=== PATIENT | male | born 1990 | race Caucasian/White ===

== ENCOUNTER 2019-04-18 08:35 | Emergency (ER) | payer SELFPAY ==
--- NOTE | 2019-04-18 09:10 | ER ---
Nurse's Notes [facility] Name: Gray Tristan Age: 28 yrs Sex: Male : 1990 Arrival Date: 04/18/2019 Time: 08:36 Bed 13 Private MD: Diagnosis: Cutaneous Abscess of Left Face Presentation: 04/18 08:38 Presenting complaint: Patient states: Abscess on the left chin started two days ago. rb1 Pt. took Dresser 5/325 mg x 2 tabs and unknown antibiotic approximately 0815 this morning. Transition of care: patient was not received from another setting of care. Onset of symptoms was April 16, 2019. Risk Assessment: Do you want to hurt yourself or someone else? Patient reports no desire to harm self or others. Initial Sepsis Screen: Does the patient meet any 2 criteria? No. Patient's initial sepsis screen is negative. Does the patient have a suspected source of infection? Yes: Skin breakdown/wound. Care prior to arrival: Medication(s) given: Dresser 5/325 mg x 2 tabs \T\ 0815 this morning and unknown antibiotic. 08:38 Method Of Arrival: Ambulatory rb1 08:38 Acuity: DONTE 3 rb1 Triage Assessment: 08:38 General: Appears in no apparent distress. comfortable, Behavior is calm, cooperative, rb1 Denies fever. Pain: Complains of pain in left chin Pain currently is 5 out of 10 on a pain scale. Pain began x 2 days. Neuro: Level of Consciousness is awake, alert, obeys commands, Oriented to person, place, time, situation. Cardiovascular: Capillary refill < 3 seconds is brisk in bilateral fingers. Respiratory: Airway is patent Respiratory effort is even, unlabored, Respiratory pattern is regular, symmetrical. GI: Reports nausea. : No signs and/or symptoms were reported regarding the genitourinary system. Derm: Abscess located on left chin/mandible is quarter sized, has no drainage, is red, is raised, Reports abscess was draining last night. Musculoskeletal: Range of motion: intact in all extremities. Historical: - Allergies: 08:38 Agave; rb1 - Home Meds: 08:38 None [Active]; rb1 - PMHx: 08:38 Abscess; rb1 - PSHx: 08:38 None; rb1 - Immunization history:: Adult Immunizations up to date. - Social history:: Smoking status: Patient uses tobacco products, smokes one pack cigarettes per day. - Ebola Screening: : Patient negative for fever greater than or equal to 101.5 degrees Fahrenheit, and additional compatible Ebola Virus Disease symptoms. Screenin:38 Abuse screen: Denies threats or abuse. Nutritional screening: No deficits noted. rb1 Tuberculosis screening: No symptoms or risk factors identified. Fall Risk None identified. Assessment: 08:38 General: See triage assessment. rb1 09:15 Reassessment: Patient appears in no apparent distress at this time. No changes from rb1 previously documented assessment. Vital Signs: 08:38 BP 138 / 88; Pulse 99; Resp 18; Temp 97.6(O); Pulse Ox 99% on R/A; Weight 77.11 kg (R); rb1 Height 5 ft. 9 in. (175.26 cm) (R); Pain 5/10; 09:15 BP 138 / 88; Pulse 89; Resp 17; Pulse Ox 100% on R/A; Pain 4/10; rb1 08:38 Body Mass Index 25.10 (77.11 kg, 175.26 cm) rb1 ED Course: 08:36 Patient arrived in ED. as 08:38 Meenakshi Collins, RN is Primary Nurse. rb1 08:38 Arm band placed on right wrist. rb1 08:38 Patient has correct armband on for positive identification. Bed in low position. Call rb1 light in reach. Side rails up X 1. Pulse ox on. NIBP on. 08:46 James Ceja MD is Attending Physician. ps1 08:47 Triage completed. rb1 09:16 No provider procedures requiring assistance completed. Patient did not have IV access rb1 during this emergency room visit. Administered Medications: No medications were administered Outcome: 09:09 Discharge ordered by . ps1 09:16 Discharged to home ambulatory. rb1 09:16 Condition: stable 09:16 Discharge instructions given to patient, Instructed on discharge instructions, follow up and referral plans. medication usage, Demonstrated understanding of instructions, follow-up care, medications, Prescriptions given X 1. 09:17 Patient left the ED. rb1 Signatures: Edda Delgado as Meenakshi Collins, SANDY RN rb1 James Ceja MD MD ps1
--- NOTE | 2019-04-18 09:10 | EDPHYS ---
Physician Documentation [facility] Name: Gray Tristan Age: 28 yrs Sex: Male : 1990 Arrival Date: 04/18/2019 Time: 08:36 Bed 13 Private MD: ED Physician James Ceja HPI: 04/18 09:05 This 28 yrs old Male presents to ER via Ambulatory with complaints of Abscess.ps1 09:05 The patient presents with an abscess of the left jaw. Appears to be cutaneous. No fever ps1 or cellulitic changes. Painful, rated as moderate and worse with palpation. Actively draining and expressed at home. Hx of previous abscess in same area. . Historical: - Allergies: 08:38 Agave; rb1 - Home Meds: 08:38 None [Active]; rb1 - PMHx: 08:38 Abscess; rb1 - PSHx: 08:38 None; rb1 - Immunization history:: Adult Immunizations up to date. - Social history:: Smoking status: Patient uses tobacco products, smokes one pack cigarettes per day. - Ebola Screening: : Patient negative for fever greater than or equal to 101.5 degrees Fahrenheit, and additional compatible Ebola Virus Disease symptoms. ROS: 09:05 Constitutional: Negative for fever, chills, and weight loss, Eyes: Negative for injury, ps1 pain, redness, and discharge, Cardiovascular: Negative for chest pain, palpitations, and edema, Respiratory: Negative for shortness of breath, cough, wheezing, and pleuritic chest pain, Abdomen/GI: Negative for abdominal pain, nausea, vomiting, diarrhea, and constipation, Neuro: Negative for headache, weakness, numbness, tingling, and seizure. 09:05 Skin: Positive for abscess. Exam: 09:05 Constitutional: This is a well developed, well nourished patient who is awake, alert, ps1 and in no acute distress. Head/Face: Normocephalic, atraumatic. Chest/axilla: Normal chest wall appearance and motion. Nontender with no deformity. No lesions are appreciated. Cardiovascular: Regular rate and rhythm. No gallops, murmurs, or rubs. Normal PMI, no JVD. No pulse deficits. Respiratory: Lungs have equal breath sounds bilaterally, clear to auscultation and percussion. No rales, rhonchi or wheezes noted. No increased work of breathing, no retractions or nasal flaring. Abdomen/GI: Soft, non-tender, with normal bowel sounds. No distension or tympany. No guarding or rebound. No evidence of tenderness throughout. 09:05 Skin: abscess, that is moderate sized, approximately 2 cm(s), of the face and left jaw, with drainage, that is serosanguinous. Vital Signs: 08:38 BP 138 / 88; Pulse 99; Resp 18; Temp 97.6(O); Pulse Ox 99% on R/A; Weight 77.11 kg (R); rb1 Height 5 ft. 9 in. (175.26 cm) (R); Pain 5/10; 09:15 BP 138 / 88; Pulse 89; Resp 17; Pulse Ox 100% on R/A; Pain 4/10; rb1 08:38 Body Mass Index 25.10 (77.11 kg, 175.26 cm) rb1 MDM: 08:57 Patient medically screened. ps1 09:08 Differential diagnosis: abscess, cellulitis. Data reviewed: vital signs, nurses notes, ps1 and as a result, I will discharge patient. Counseling: I had a detailed discussion with the patient and/or guardian regarding: the historical points, exam findings, and any diagnostic results supporting the discharge/admit diagnosis, to return to the emergency department if symptoms worsen or persist or if there are any questions or concerns that arise at home. Administered Medications: No medications were administered Disposition: 04/18/19 09:09 Discharged to Home. Impression: Cutaneous Abscess of Left Face. - Condition is Stable. - Discharge Instructions: Skin Abscess. - Prescriptions for Clindamycin HCl 300 mg Oral Capsule - take 1 capsule by ORAL route every 6 hours for 10 days; 40 capsule. - Medication Reconciliation Form, Thank You Letter, Antibiotic Education, Prescription Opioid Use form. - Follow up: Private Physician; When: As needed; Reason: Further diagnostic work-up, Recheck today's complaints, Continuance of care, Re-evaluation by your physician. Follow up: Emergency Department; When: As needed; Reason: Fever > 102 F, Worsening of condition. - Problem is new. - Symptoms are unchanged. Signatures: Meenakshi Collins RN RN rb1 James Ceja MD MD ps1 Corrections: (The following items were deleted from the chart) 09:17 09:09 04/18/2019 09:09 Discharged to Home. Impression: Cutaneous Abscess of Left Face. rb1 Condition is Stable. Forms are Medication Reconciliation Form, Thank You Letter, Antibiotic Education, Prescription Opioid Use. Follow up: Private Physician; When: As needed; Reason: Further diagnostic work-up, Recheck today's complaints, Continuance of care, Re-evaluation by your physician. Follow up: Emergency Department; When: As needed; Reason: Fever > 102 F, Worsening of condition. Problem is new. Symptoms are unchanged. ps1
[2019-04-18 10:34] VITALS: BP 138/88; O2SAT 100
== END 2019-04-18 09:17 | disposition home or self-care (01) ==
LOC: ER 08:35
DX: L02.01 Cutaneous abscess of face (principal); F17.210 Nicotine dependence, cigarettes, uncomplicated; Z88.8 Allergy status to other drugs, medicaments and biological substances
CPT/HCPCS: 99283

== ENCOUNTER 2020-01-24 15:10 | Emergency (ER) | payer SELFPAY ==
[2020-01-24 15:36] LABS: Absolute Lymphocytes (CBC) 1.7 K/uL (0.7-4.9); Basophils % 1.1 % (0-1.3); Hematocrit 51.5 % (39.6-49.0); Lymphocytes % 14.3 % (15.3-44.8); MPV 8.3 fL (7.6-11.3); RBC Red Blood Cell Count 5.21 M/uL (4.33-5.43)
[2020-01-24] MEDS ORDERED: NA CHLORIDE 0.9% 1,000 ML ONE (15:49)
[2020-01-24 16:03] LABS: Potassium 4.8 mmol/L (3.5-5.1)
--- NOTE | 2020-01-24 16:56 | RAD REPORT ---
EXAM DESCRIPTION: CT - Stone Protocol - 01/24/2020 4:19 pm CLINICAL HISTORY: Abdominal pain. Right flank pain COMPARISON: 2011 TECHNIQUE: Computed axial tomography of the abdomen pelvis was obtained without oral or IV contrast. Lack of IV and oral contrast limits evaluation of solid organs, bowel, and vessels. Coronal reformat ariane images were obtained and reviewed. All CT scans are performed using dose optimization technique as appropriate and may include automated exposure control or mA/KV adjustment according to patient size. FINDINGS: A renal calculus is not seen. An ureteral calculus is not noted. A bladder calculus is not present. The liver, spleen, pancreas and adrenals appear grossly normal There is no evidence of diverticulitis. The appendix appears normal 14 millimeter peripherally calcified mass within the posterior pelvis is benign IMPRESSION: Negative for a genitourinary calculus
--- NOTE | 2020-01-24 17:04 | EDPHYS ---
Physician Documentation [facility] Name: Gray Tristan Age: 29 yrs Sex: Male : 1990 Arrival Date: 01/24/2020 Time: 15:14 Bed 15 Private MD: ED Physician Ben Villagran HPI: 01/23 15:35 This 29 yrs old Male presents to ER via EMS with complaints of flank pain, jmm abdominal pain, scrotal pain. 15:35 The patient complains of pain in the right flank. Onset: The symptoms/episode jmm began/occurred acutely, just prior to arrival. Modifying factors: The symptoms are alleviated by nothing. the symptoms are aggravated by nothing. Associated signs and symptoms: Pertinent negatives: fever, headache, hematuria. This is a 29 year old male with no chronic medical conditions that presents to the ED with right flank pain beginning just prior to arrival. Pain is now dull in the suprapubic region. Denies vomiting, fever. Denies history kidney stone. . Historical: - Allergies: 15:19 Agave; ph - PMHx: 15:19 abscess; ph - PSHx: 15:19 None; ph - Immunization history:: Adult Immunizations unknown. - Social history:: Smoking status: Patient reports the use of cigarette tobacco products, smokes one pack cigarettes per day. ROS: 15:35 Constitutional: Negative for fever, chills, and weight loss, Cardiovascular: Negative jmm for chest pain, palpitations, and edema, Respiratory: Negative for shortness of breath, cough, wheezing, and pleuritic chest pain. 15:35 Abdomen/GI: Positive for abdominal pain. 15:35 Back: Positive for flank pain. 15:35 All other systems are negative. Exam: 15:35 Constitutional: This is a well developed, well nourished patient who is awake, alert, jmm and in no acute distress. Head/Face: atraumatic. Eyes: EOMI, no conjunctival erythema appreciated ENT: Moist Mucus Membranes Neck: Trachea midline, Supple Chest/axilla: Normal chest wall appearance and motion. Cardiovascular: Regular rate and rhythm. No edema appreciated Respiratory: Normal respirations, no respiratory distress appreciated 15:35 Back: Normal ROM Skin: General appearance color normal MS/ Extremity: Moves all extremities, no obvious deformities appreciated, no edema noted to the lower extremities Neuro: Awake and alert, normal gait Psych: Behavior is normal, Mood is normal, Patient is cooperative and pleasant 15:35 Abdomen/GI: Inspection: abdomen appears normal, Bowel sounds: normal, Palpation: soft, mild abdominal tenderness, in the suprapubic area. 17:03 Abdomen/GI: Inspection: abdomen appears normal, Bowel sounds: normal, Palpation: [facility] [place] abdomen is soft and non-tender, in all quadrants. 17:03 : Male external genitalia: normal. Vital Signs: 15:15 BP 139 / 83; Pulse 83; Resp 18; Temp 97.5; Pulse Ox 99% on R/A; Weight 72.57 kg; Height ph 5 ft. 8 in. (172.72 cm); Pain 4/10; 17:36 BP 134 / 68; Pulse 78; Resp 16; Pulse Ox 99% on R/A; Pain 0/10; ls4 15:15 Body Mass Index 24.33 (72.57 kg, 172.72 cm) ph MDM: 15:27 Patient medically screened. [facility] 17:02 Data reviewed: vital signs, nurses notes. Counseling: I had a detailed discussion with [facility] the patient and/or guardian regarding: the historical points, exam findings, and any diagnostic results supporting the discharge/admit diagnosis, lab results, radiology results, the need for outpatient follow up, to return to the emergency department if symptoms worsen or persist or if there are any questions or concerns that arise at home. ED course: Imaging studies negative. Patient states the pain has resolved. Differential torsion, ureteral stone, appendicitis. Patient is advised to return to the ED with pain returns. . 01/23 15:21 Order name: Basic Metabolic Panel; Complete Time: 16:06 [facility] 01/23 15:21 Order name: CBC with Diff; Complete Time: 15:46 [facility] 01/23 15:30 Order name: CT Stone Protocol; Complete Time: 17:00 [facility] 01/23 15:21 Order name: IV Saline Lock; Complete Time: 15:22 [facility] 01/23 15:21 Order name: Labs collected and sent; Complete Time: 15:22 ls4 Administered Medications: 15:47 Drug: NS 0.9% 1000 ml Route: IV; Rate: 1 bolus; Site: right antecubital; ls4 Disposition: 01/24 17:04 Co-signature as Attending Physician, Ben Villagran MD I agree with the assessment and kdr plan of care. Disposition: 01/24/20 17:03 Discharged to Home. Impression: Abdominal and pelvic pain. - Condition is Stable. - Discharge Instructions: Abdominal Pain, Adult. - Medication Reconciliation Form, Thank You Letter, Antibiotic Education, Prescription Opioid Use form. - Follow up: Private Physician; When: 2 - 3 days; Reason: Recheck today's complaints, Continuance of care, Re-evaluation by your physician. Signatures: Dispatcher [employer] EDMS Ben Villagran MD MD kdr Mickail, Joel, PA PA jmm Kathryn Gill, RN RN ph Ashley Kinsey RN RN ls4 Corrections: (The following items were deleted from the chart) 01/23 17:40 17:03 01/24/2020 17:03 Discharged to Home. Impression: Abdominal and pelvic pain. ls4 Condition is Stable. Forms are Medication Reconciliation Form, Thank You Letter, Antibiotic Education, Prescription Opioid Use. Follow up: Private Physician; When: 2 - 3 days; Reason: Recheck today's complaints, Continuance of care, Re-evaluation by your physician. [facility]
--- NOTE | 2020-01-24 17:04 | ER ---
Nurse's Notes [facility] Name: Gray Tristan Age: 29 yrs Sex: Male : 1990 Arrival Date: 01/24/2020 Time: 15:14 Bed 15 Private MD: Diagnosis: Abdominal and pelvic pain Presentation: 01/23 15:15 Chief complaint: EMS states: Pt c/o sudden onset of R sided abdominal pain, radiates to ph R testicle and R flank, also reports difficulty urinating DIRECTOR MBA, denies fever, N/V. Coronavirus screen: Client denies travel out of the [place] in the last 14 days. At this time, the client does not indicate any symptoms associated with coronavirus-19. Ebola Screen: No symptoms or risks identified at this time. Initial Sepsis Screen: Does the patient meet any 2 criteria? No. Patient's initial sepsis screen is negative. Does the patient have a suspected source of infection? No. Patient's initial sepsis screen is negative. Risk Assessment: Do you want to hurt yourself or someone else? Patient reports no desire to harm self or others. Onset of symptoms was January 24, 2020. 15:15 Method Of Arrival: EMS: [facility] 15:15 Acuity: DONTE 3 ph Triage Assessment: 15:25 General: Appears uncomfortable, Behavior is calm, cooperative. Pain: Complains of pain ls4 in groin, right femoral area, suprapubic area, right inguinal area and right iliac crest Pain currently is 10 out of 10 on a pain scale. Neuro: No deficits noted. Cardiovascular: No deficits noted. Respiratory: No deficits noted. Historical: - Allergies: 15:19 Agave; ph - PMHx: 15:19 abscess; ph - PSHx: 15:19 None; ph - Immunization history:: Adult Immunizations unknown. - Social history:: Smoking status: Patient reports the use of cigarette tobacco products, smokes one pack cigarettes per day. Screenin:27 Abuse screen: Denies threats or abuse. Denies injuries from another. Nutritional ls4 screening: No deficits noted. Tuberculosis screening: No symptoms or risk factors identified. Fall Risk None identified. Vital Signs: 15:15 BP 139 / 83; Pulse 83; Resp 18; Temp 97.5; Pulse Ox 99% on R/A; Weight 72.57 kg; Height ph 5 ft. 8 in. (172.72 cm); Pain 4/10; 17:36 BP 134 / 68; Pulse 78; Resp 16; Pulse Ox 99% on R/A; Pain 0/10; ls4 15:15 Body Mass Index 24.33 (72.57 kg, 172.72 cm) ph ED Course: 15:14 Patient arrived in ED. ls4 15:19 Triage completed. ph 15:19 Arm band placed on Patient placed in an exam room, on a stretcher, on pulse oximetry. ph 15:21 Ashley Kinsey, RN is Primary Nurse. ls4 15:23 Lj Beltran PA is PHCP. [facility] 15:23 Ben Villagran MD is Attending Physician. [facility] 15:27 Patient has correct armband on for positive identification. Bed in low position. Call ls4 light in reach. Side rails up X 1. agricultural research technologist on. Pulse ox on. NIBP on. Diet: Patient is NPO. 15:29 Initial lab(s) drawn, by ar, sent to lab. Inserted saline lock: 18 gauge in right ls4 antecubital area, using aseptic technique. Blood collected. Patient maintains SpO2 saturation greater than 95% on room air. 16:19 CT Stone Protocol In Process Unspecified. EDMS 17:39 No provider procedures requiring assistance completed. ls4 17:39 IV discontinued, intact, bleeding controlled, No redness/swelling at site. Pressure ls4 dressing applied. Administered Medications: 15:47 Drug: NS 0.9% 1000 ml Route: IV; Rate: 1 bolus; Site: right antecubital; ls4 Outcome: 17:03 Discharge ordered by . [facility] 17:38 Discharged to home ambulatory. ls4 17:38 Condition: stable 17:38 Discharge instructions given to patient, family, Instructed on discharge instructions, follow up and referral plans. medication usage, Demonstrated understanding of instructions, follow-up care. 17:40 Patient left the ED. ls4 Signatures: Dispatcher [employer] EDMS Lj Beltran PA PA jmm Hall, Patricia, RN RN ph Ashley Kinsey, RN RN ls4
== END 2020-01-24 17:40 | disposition home or self-care (01) ==
LOC: ER 15:10
DX: R10.30 Lower abdominal pain, unspecified (principal); R10.2 Pelvic and perineal pain; F17.210 Nicotine dependence, cigarettes, uncomplicated
CPT/HCPCS: 36415; 74176; 76377; 80048; 85025; 99285; J7030

== ENCOUNTER 2023-02-06 15:21 | Emergency (ER) | payer SELFPAY ==
[2023-02-06] MEDS ORDERED: HYDROCODONE/APAP 5/325 MG TAB ONE (16:06)
[2023-02-06] MEDS ORDERED: DOXYCYCLINE 100 MG CAP PO ONE (16:06)
[2023-02-06] MEDS ORDERED: TDAP (DIPHTH,PERTUSS(ACELL),TET VAC) 0.5 ML VIAL IMVAC ONE (16:07)
--- NOTE | 2023-02-06 16:11 | EDPHYS ---
Physician Documentation [facility] Name: Gray Tristan Age: 32 yrs Sex: Male : 1990 Arrival Date: 02/06/2023 Time: 15:21 Bed 13 Private MD: ED Physician Adal Jameson HPI: 02/06 15:41 This 32 yrs old Male presents to ER via Ambulatory with complaints of Wound Infection - snw On finger. 15:41 Onset: The symptoms/episode began/occurred acutely. The patient has not experienced snw similar symptoms in the past. It is unknown whether or not the patient has recently seen a physician. pt states he may have a fish fin or tire material in index finger, states he has expressed pus from the area. 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 - Social history:: Smoking status: Patient reports the use of cigarette tobacco products, smokes one-half pack cigarettes per day, Patient uses alcohol, occasionally. ROS: 15:41 Constitutional: Negative for fever, chills, and weight loss, Eyes: Negative for injury, snw pain, redness, and discharge, ENT: Negative for injury, pain, and discharge, Neck: Negative for injury, pain, and swelling, Cardiovascular: Negative for chest pain, palpitations, and edema, Respiratory: Negative for shortness of breath, cough, wheezing, and pleuritic chest pain, Abdomen/GI: Negative for abdominal pain, nausea, vomiting, diarrhea, and constipation, Back: Negative for injury and pain, : Negative for injury, bleeding, discharge, and swelling, Neuro: Negative for headache, weakness, numbness, tingling, and seizure, Psych: Negative for depression, anxiety, suicide ideation, homicidal ideation, and hallucinations. 15:41 MS/extremity: Positive for erythema, swelling, tenderness. Exam: 15:42 Constitutional: This is a well developed, well nourished patient who is awake, alert, snw and in no acute distress. Head/Face: Normocephalic, atraumatic. Eyes: Pupils equal round and reactive to light, extra-ocular motions intact. Lids and lashes normal. Conjunctiva and sclera are non-icteric and not injected. Cornea within normal limits. Periorbital areas with no swelling, redness, or edema. ENT: Nares patent. No nasal discharge, no septal abnormalities noted. Tympanic membranes are normal and external auditory canals are clear. Oropharynx with no redness, swelling, or masses, exudates, or evidence of obstruction, uvula midline. Mucous membranes moist. Neck: Trachea midline, no thyromegaly or masses palpated, and no cervical lymphadenopathy. Supple, full range of motion without nuchal rigidity, or vertebral point tenderness. No Meningismus. Chest/axilla: Normal chest wall appearance and motion. Nontender with no deformity. No lesions are appreciated. Cardiovascular: Regular rate and rhythm with a normal S1 and S2. No gallops, murmurs, or rubs. Normal PMI, no JVD. No pulse deficits. Respiratory: Lungs have equal breath sounds bilaterally, clear to auscultation and percussion. No rales, rhonchi or wheezes noted. No increased work of breathing, no retractions or nasal flaring. Abdomen/GI: Soft, non-tender, with normal bowel sounds. No distension or tympany. No guarding or rebound. No evidence of tenderness throughout. Back: No spinal tenderness. No costovertebral tenderness. Full range of motion. Neuro: Awake and alert, GCS 15, oriented to person, place, time, and situation. Cranial nerves II-XII grossly intact. Motor strength 5/5 in all extremities. Sensory grossly intact. Cerebellar exam normal. Normal gait. Psych: Awake, alert, with orientation to person, place and time. Behavior, mood, and affect are within normal limits. 15:42 Skin: Appearance: normal except for affected area, abscess, that is moderate sized, of the 2nd phalanx area of index finger with felon. Vital Signs: 15:32 BP 142 / 95; Pulse 97; Resp 18; Temp 98.2(O); Pulse Ox 100% on R/A; Weight 74.84 kg; ld1 Height 5 ft. 9 in. ; Pain 10/10; 15:32 Body Mass Index 24.37 (74.84 kg, 175.26 cm) ld1 15:32 Pain Scale: Adult ld1 Procedures: 15:53 Nerve block: (digital) of left index finger. Medication: Lidocaine 1% without snw epinephrine Marcaine 0.5%, Amount: 5 mls were injected, Effect: the patient's symptoms are improved, markedly, Performed by Simi PUTNAM Patient tolerated well. 16:10 I \T\ D: Incision and drainage was performed for an abscess of the left left index finger snw Prepped with hibiclens. Anesthetized with digital block. Incised with #10 blade. Drained large amount purulent fluid. Loculations removed. Dressing: non-Adherent dressing, the patient tolerated the procedure well. MDM: 15:31 Patient medically screened. snw 15:44 Differential diagnosis: bacterial infection, paronychia, felon. Data reviewed: vital snw signs, nurses notes, radiologic studies. I considered the following discharge prescriptions or medication management in the emergency department Medications were administered in the Emergency Department. See MAR. Counseling: I had a detailed discussion with the patient and/or guardian regarding the historical points, exam findings, and any diagnostic results supporting the discharge/admit diagnosis, the need for outpatient follow up, with hand surgeon. 15:55 Independent interpretation of the following test(s) in the Emergency Department X-Ray: snw My interpretation is no noted fb in left index finger, + soft tissue swelling. 16:08 Response to treatment: the patient's symptoms have markedly improved after treatment. snw Special discussion: I have referred the patient to see his PCP for further evaluation of high blood pressure. I discussed in detail with the patient the higher chance of wound infection based on his presenting history. Based on the history and exam findings, there is no indication for further emergent testing or inpatient evaluation. I discussed with the patient/guardian the need to see the hand specialist for further evaluation of the symptoms. 02/06 15:40 Order name: Hand Left 2 View XRAY; Complete Time: 16:19 snw 02/06 16:12 Order name: Wound dressing; Complete Time: 16:45 snw Administered Medications: 15:58 Drug: Boostrix Tdap IM 0.5 ml {Note: [employer] Lot# [id number] exp 09/10/2024.} Route: ld1 IM; Site: right deltoid; 16:45 Follow up: Response: No adverse reaction eh3 15:58 Drug: Doxycycline PO 100 mg Route: PO; ld1 16:45 Follow up: Response: No adverse reaction eh3 15:58 Drug: HYDROcodone-acetaminophen PO 5 mg-325 mg 1 tabs Route: PO; ld1 16:45 Follow up: Response: No adverse reaction eh3 16:56 Drug: Mupirocin Topical Ointment 2 % 1 application Route: Topical; Site: wound; eh3 Disposition Summary: 02/06/23 16:10 Discharge Ordered Location: Home snw Condition: Stable snw Diagnosis - Cutaneous abscess of hand - osbaldoon, left index finger snw Followup: snw - With: Emergency Department - When: As needed - Reason: Worsening of condition Followup: snw - With: Private Physician - When: 2 - 3 days - Reason: Recheck today's complaints, Continuance of care, Re-evaluation by your physician Discharge Instructions: - Discharge Summary Sheet snw - Hand Washing snw - Felon snw - Hand Pain snw Forms: - Medication Reconciliation Form snw - Thank You Letter snw - Antibiotic Education snw - Prescription Opioid Use snw - Patient Portal Instructions snw - Leadership Thank You Letter snw Prescriptions: - Doxycycline Hyclate 100 mg Oral Tablet - take 1 tablet by ORAL route every 12 hours; 20 tablet; Refills: 0, Product snw Selection Permitted - Tramadol 50 mg Oral Tablet - take 1 tablet by ORAL route every 8 hours as needed; 12 tablet; Refills: 0, snw Product Selection Permitted Signatures: Dispatcher [employer] Simi Mckay FNP-C BUS INFO CONSULTANT-[facility] Wendy Frankel RN RN ld1 Corazon Gill RN RN eh3 Corrections: (The following items were deleted from the chart) 15:42 15:41 Skin: Positive for felon, snw snw
--- NOTE | 2023-02-06 16:11 | ER ---
Nurse's Notes [facility] Name: Gray Tristan Age: 32 yrs Sex: Male : 1990 Arrival Date: 02/06/2023 Time: 15:21 Bed 13 Private MD: Diagnosis: Cutaneous abscess of hand-felon, left index finger Presentation: 02/06 15:32 Chief complaint: Patient states: Left hand first finger wound - "Possible tire tread ld1 wire or fish fin.". Coronavirus screen: At this time, the client does not indicate any symptoms associated with coronavirus-19. Ebola Screen: No symptoms or risks identified at this time. Initial Sepsis Screen: Does the patient meet any 2 criteria? No. Patient's initial sepsis screen is negative. Does the patient have a suspected source of infection? No. Patient's initial sepsis screen is negative. Risk Assessment: Do you want to hurt yourself or someone else? Patient reports no desire to harm self or others. Onset of symptoms was February 06, 2023 at 15:33. 15:32 Method Of Arrival: Ambulatory ld1 15:32 Acuity: DONTE 4 ld1 Triage Assessment: 15:33 General: Appears in no apparent distress. comfortable, Behavior is calm, cooperative, ld1 appropriate for age. Pain: Complains of pain in palmar aspect of distal phalanx of left index finger, palmar aspect of middle phalanx of left index finger and palmar aspect of proximal phalanx of left index finger Pain does not radiate. Pain currently is 10 out of 10 on a pain scale. Quality of pain is described as throbbing, Pain began 2-3 days ago. EENT: No signs and/or symptoms were reported regarding the EENT system. Neuro: Level of Consciousness is awake, alert, obeys commands, Oriented to person, place, time, situation. Cardiovascular: Capillary refill < 3 seconds Patient's skin is warm and dry. Respiratory: Airway is patent Respiratory effort is even, unlabored. GI: Abdomen is flat, non-distended. : No signs and/or symptoms were reported regarding the genitourinary system. Derm: No signs and/or symptoms reported regarding the dermatologic system. Musculoskeletal: No signs and/or symptoms reported regarding the musculoskeletal system. 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 - Social history:: Smoking status: Patient reports the use of cigarette tobacco products, smokes one-half pack cigarettes per day, Patient uses alcohol, occasionally. Screenin:35 [facility] ED Fall Risk Assessment (Adult) History of falling in the last 3 months, ld1 including since admission No falls in past 3 months (0 pts). Abuse screen: Denies threats or abuse. Denies injuries from another. Nutritional screening: No deficits noted. Tuberculosis screening: No symptoms or risk factors identified. Assessment: 15:35 Reassessment: See triage assessment. ld1 16:30 Reassessment: Patient appears in no apparent distress at this time. Patient and/or eh3 family updated on plan of care and expected duration. Pain level reassessed. Patient is alert, oriented x 3, equal unlabored respirations, skin warm/dry/pink. Vital Signs: 15:32 BP 142 / 95; Pulse 97; Resp 18; Temp 98.2(O); Pulse Ox 100% on R/A; Weight 74.84 kg; ld1 Height 5 ft. 9 in. ; Pain 10/10; 15:32 Body Mass Index 24.37 (74.84 kg, 175.26 cm) ld1 15:32 Pain Scale: Adult ld1 ED Course: 15:27 Patient arrived in ED. im 15:30 Simi Thomason FNP-C is PHCP. snw 15:30 Adal Jameson MD is Attending Physician. snw 15:33 Triage completed. ld1 15:33 Arm band placed on right wrist. ld1 15:35 Patient has correct armband on for positive identification. Placed in gown. Bed in low ld1 position. Call light in reach. Side rails up X2. Pulse ox on. NIBP on. Door closed. Noise minimized. Warm blanket given. 15:55 Hand Left 2 View XRAY In Process Unspecified. EDMN 16:45 Provided Education on: wound care. [facility] 16:45 Dressings: Kerlix X 1; left index finger non-adherent dressing x 1 left index finger. eh3 16:57 No provider procedures requiring assistance completed. Patient did not have IV access eh3 during this emergency room visit. Administered Medications: 15:58 Drug: Boostrix Tdap IM 0.5 ml {Note: [employer] Lot# [id number] exp 09/10/2024.} Route: ld1 IM; Site: right deltoid; 16:45 Follow up: Response: No adverse reaction eh3 15:58 Drug: Doxycycline PO 100 mg Route: PO; ld1 16:45 Follow up: Response: No adverse reaction eh3 15:58 Drug: HYDROcodone-acetaminophen PO 5 mg-325 mg 1 tabs Route: PO; ld1 16:45 Follow up: Response: No adverse reaction eh3 16:56 Drug: Mupirocin Topical Ointment 2 % 1 application Route: Topical; Site: wound; eh3 Medication: 16:00 Vaccine Information Statement (VIS) provided today. Questions and/or concerns ld1 addressed. VIS edition date: December 27, 2020. Outcome: 16:10 Discharge ordered by . snw 16:57 Discharged to home ambulatory. eh3 16:57 Condition: stable 16:57 Discharge instructions given to patient, Instructed on discharge instructions, follow up and referral plans. medication usage, wound care, Demonstrated understanding of instructions, follow-up care, medications, wound care, Prescriptions given X 2. 16:58 Patient left the ED. eh3 Signatures: Dispatcher [employer] EDMS Simi Thomason FNP-C DIRECTOR OUTCOMES-[place] Wendy Frankel RN RN ld1 Corazon Gill RN RN eh3 Chela Lopes Corrections: (The following items were deleted from the chart) 16:00 15:58 Boostrix Tdap IM 0.5 ml IM in right deltoid ld1 ld1
--- NOTE | 2023-02-06 16:15 | RAD REPORT ---
EXAM DESCRIPTION: RAD - Hand Left 2 View - 02/06/2023 3:54 pm CLINICAL HISTORY: Left hand pain. Index finger pain FINDINGS: No fracture or dislocation is seen. Old avulsion fracture ulnar styloid process
[2023-02-06] MEDS ORDERED: MUPIROCIN 2% OINT 22GM TUBE TOP ONE (16:37)
[2023-02-06 17:03] VITALS: BP 142/95; TEMP 98.2; O2SAT 100
== END 2023-02-06 16:58 | disposition home or self-care (01) ==
LOC: ER 15:21
PROC: 0H9GXZZ Drainage of Left Hand Skin, External Approach (ICD-10-PCS; principal; 2023-02-06)
DX: L03.012 Cellulitis of left finger (principal); L02.512 Cutaneous abscess of left hand
CPT/HCPCS: 64450; 96372; 99284